=== PATIENT | male | born 1955 | race Hispanic/Latino ===

== ENCOUNTER 2018-08-13 21:36 | Emergency (ER) | payer BC, OTHER ==
[2018-08-13] MEDS ORDERED: LIDOCAINE 2%-EPI 1:200,000 20 ML VIAL IJ ONE (22:07)
[2018-08-13] MEDS ORDERED: HYDROCODONE/ACETAMINOPHEN 5/325 MG TAB ONE (22:39)
[2018-08-13] MEDS ORDERED: CLINDAMYCIN HCL 150 MG CAP ONE (22:39)
== END 2018-08-13 22:47 | disposition home or self-care (01) ==
LOC: EDH 21:36
DX: L02.512 Cutaneous abscess of left hand (principal); L03.114 Cellulitis of left upper limb; A49.02 Methicillin resistant Staphylococcus aureus infection, unspecified site; E11.9 Type 2 diabetes mellitus without complications; Z90.49 Acquired absence of other specified parts of digestive tract
CPT/HCPCS: 10060; 99283; J3490